=== PATIENT | male | born 1990 | race Two or more races ===

== ENCOUNTER 2021-05-27 23:19 | Emergency (ER) | payer SELFPAY ==
[~2021-05-27] VITALS: Ht 177.8 cm; Wt 77.3 kg
--- NOTE | 2021-05-28 01:37 | ED.ADGEN ---
General Adult EDM: Chief Complaint: MULTIPLE COMPLAINTS HPI: HPI: Patient is a 30 year old male coming in for headache, sore throat, and intermittent fevers for the past 2 to 3 days. He describes the headache is all over throbbing that comes and goes. Denies any cough, vomiting, or diarrhea. Because of identification issues was unable to be fully vaccinated against COVID-19. Significant medical history Review of Systems: Review of Systems: All other systems within normal limits except for as noted in the HPI Current Medications: Current Medications Medications (Trade) Dose Ordered Sig/Cristina Start Time Stop Time Status Last Admin Dose Admin Ketorolac Tromethamine (Toradol Im) 60 mg 1X ONCE 05/28/21 02:30 05/28/21 02:31 DC Allergies: Allergies: Allergies Coded Allergies Type Severity Reaction Last Updated Verified No Known Drug Allergies 05/28/21 No Physical Exam: PE: Constitutional: Well developed, well nourished, no acute distress, non-toxic appearance. [] HENT: Normocephalic, atraumatic, bilateral external ears normal, nose normal. Erythema posterior pharynx with 1 area of exudate [] Eyes: PERRLA, conjunctiva normal, no discharge. [] Neck: No rigidity, supple, no stridor. [] Cardiovascular: Regular rate and rhythm, brisk cap refill [] Lungs & Thorax: Non labored symmetric respirations, no tachypnea or respiratory distress [] Abdomen: Soft, nondistended. Skin: Warm, dry, no erythema, no rash. [] Back: Unremarkable Extremities: No deformities, range of motion grossly intact, no lower extremity edema [] Neurologic: Alert and oriented X 3, no focal deficits noted. [] Psychologic: Affect normal, judgement normal, mood normal. [] Current Patient Data: Vital Signs: Vital Signs Date Time Temp Pulse Resp B/P (MAP) Pulse Ox O2 Delivery O2 Flow Rate FiO2 05/28/21 02:29 98.4 86 16 148/67 98 Room Air 98.4 EKG: EKG: [] Heart Score: C/O Chest Pain: No Risk Factors: Risk Factors: DM, Current or recent (<one month) smoker, HTN, HLP, family history of CAD, obesity. Risk Scores: Score 0 - 3: 2.5% MACE over next 6 weeks - Discharge Home Score 4 - 6: 20.3% MACE over next 6 weeks - Admit for Clinical Observation Score 7 - 10: 72.7% MACE over next 6 weeks - Early Invasive Strategies Radiology/Procedures: Radiology/Procedures: [] Course & Med Decision Making: Course & Med Decision Making Pertinent Labs and Imaging studies reviewed. (See chart for details) [] Dragon Disclaimer: Dragon Disclaimer: This electronic medical record was generated, in whole or in part, using a voice recognition dictation system. Departure Departure Impression: Primary Impression: Person under investigation for COVID-19 Additional Impression: Head ache Disposition: LEFT AWOL/ELOPED Condition: STABLE Patient Instructions: General Headache Without Cause Additional Instructions: Definicin Se le realiz la prueba de deteccin del COVID-19 o se le diagnostic dicha enfermedad. Es kamaljit infeccin ocasionada por un nuevo tipo de coronavirus. En la mayora de los casos, el COVID-19 provoca sntomas similares a los del resfriado. En algunas personas, puede ocasionar sntomas ms graves, renita problemas respiratorios. No existe un tratamiento para el virus COVID-19. El cuerpo elimina la infeccin con el tiempo. El cuidado personal ayuda a aliviar el malestar. Pasos que debe seguir 1. Cuidados personales Descanse cuando sea necesario. Los hbitos saludables pueden ayudarlo a sentirse mejor. Algunas medidas para lograr cambios incluyen lo siguiente: - Elija alimentos saludables, renita frutas y verduras. Sharita abundante cantidad de agua doc todo el da. - Duerma julia por la noche. - Si fuma, intente no hacerlo. [place] ayudar a mejorar la respiracin. - Evite el alcohol. 2. Mantenga sanos a los dems El virus puede contagiarse a otras personas. Cada vez que estornuda o tose, se liberan gotitas. Las gotitas pueden entrar en la boca, la nariz o los ojos de las personas que se encuentran cerca de usted y ocasionar la infeccin. Para reducir las probabi lidades de contagiar el virus COVID-19 a otros, tenga en cuenta lo siguiente: - Qudese en casa el tiempo que el mdico se lo indique. Es posible que deba quedarse en casa hasta que la enfermedad desaparezca. Salga nicamente para recibir atencin mdica o en harjeet de urgencia. - Evite las reas pblicas, los eventos o el transporte pblico. No reanude las actividades laborales o escolares hasta que el mdico lo autorice. - Llame previamente si necesita asistir a un centro mdico. Avise que es posibl e que haya contrado COVID-19. [place] ayudar a que le indiquen adonde debe dirigirse. [place] pueden pedirle que use kamaljit mscara facial cuando vaya al consultorio. Si llama a los servicios de asistencia mdica de urgencias, avseles que es posible que haya contrado COVID-19. Mientras est en casa: - Evite el contacto directo con otras personas. Mantngase a kamaljit distancia apr oximada de 2 metros. Si es posible, pasen la mayor parte del tiempo en terrell separadas. - Use kamaljit mscara facial si estar en contacto directo con otras personas, por ejemplo, si compartir kamaljit habitacin o un vehculo. - Pida a alguien que limpie las superficies comunes de la casa. Limpie picaportes, mesadas y lavamanos con limpiadores domsticos todos los aragon. - Al toser o estornudar, cbrase con un pauelo de papel. Despus de usarlo, deschelo de inmediato. Si no tiene un pauelo de papel, tosa o estornude en el pliegue del codo. - Lvese las estee con frecuencia. Lvese las estee despus de estornudar o toser. Lvese con agua y jabn doc, al menos, 20 segundos. Si no dispone de agua y jabn, use un limpiador de estee a base de alcohol. - No cocine para otros. Evite compartir objetos personales, renita tenedores, cucharas o cepillos de dientes. - Mientras est enfermo, evite el contacto directo con las mascotas. No hay indicios de si el virus se transmite a las mascotas. Esta es kamaljit medida de seguridad que debe tenerse en cuenta hasta que se sepa ms acerca de ivon virus. El aislamiento puede ser frustrante. La interaccin social puede ayudar. Mantngase en contacto con amigos y familiares por telfono u otros medios tecnolgicos. Puede interactuar con otras personas en el hogar, beni mantenga kamaljit distancia wilkinson de aproximadamente 2 metros. Seguimiento Las pruebas para confirmar la presencia del COVID-19 pueden demorar algunos aragon. Es posible que deba seguir los pasos mencionados anteriormente hasta que estn los resultados de las pruebas. Lo llamarn del consultorio mdico para saber si retana habido algn cambio en [place] [employer]. Tambin le avisarn cuando pueda volver a estar cerca de otras personas. Problemas a los que debe estar atento Comunquese con el mdico si no se recupera segn lo previsto o si tiene problemas renita los siguientes: - Dificultad para respirar - Dolor de pecho - Empeoramiento de los sntomas Si radha que tiene kamaljit urgencia, llame a los servicios de asistencia mdica de urgencias de inmediato. As taken from [facility] Problem Qualifiers SELVIN IZQUIERDO MD May 28, 2021 01:37
[2021-05-28 02:29] VITALS: BP 148/67
[2021-05-28] MEDS ORDERED: KETOROLAC 60 MG/2 ML VIAL. IM ONE (02:30)
--- NOTE | 2021-05-29 13:56 | NUR ---
IP: Attempted to contact pt concerning covid results. No answer, no voicemail.
--- NOTE | 2021-05-30 08:53 | NUR ---
IP: Attempted a second time to contact pt concerning covid test. No answer, again left a voicemail to return the call.
--- NOTE | 2021-05-30 14:03 | NUR ---
IP: Daughter called. Pt does not speak cost[place] r[place]. Informed her of positive covid test and the need to quarantine for 10 days. She verbalized understanding.
== END 2021-05-28 03:56 | disposition home or self-care (01) ==
LOC: ER 23:19
DX: R51.9 Headache, unspecified (principal); Z20.822 Contact with and (suspected) exposure to COVID-19; J02.9 Acute pharyngitis, unspecified; R50.9 Fever, unspecified
CPT/HCPCS: 87070; 87147; 87880; 96372; 99283; J1885; U0003; U0005